=== PATIENT | male | born 2000 | race Two or more races ===

== ENCOUNTER 2021-05-15 19:43 | Inpatient (IN) | payer MEDICAID, OTHER ==
[~2021-05-15] VITALS: Ht 170.2 cm; Wt 121.7 kg
[2021-05-15] MEDS ORDERED: ACETAMINOPHEN 500 MG TAB PO ONE (20:00)
[2021-05-15 20:38] LABS: Basophils # (auto) 0 10 ^3/uL (0-0.2); Basophils % (auto) 0.1 % (0.0-2.0); Eosinophils # (auto) 0 10 ^3/uL (0-0.8); Hematocrit 42.8 % (41.0-53.0); Lymphocytes # (auto) 1.2 10 ^3/uL (0.4-5.4); Lymphocytes % (auto) 15.9 % (10.0-50.0); Mean Corpuscular Hemoglobin 28.7 pg (28.0-32.0); Mean Corpuscular Hgb Conc. 35.1 g/dL (32.0-36.0); Mean Corpuscular Volume 81.7 fL (80.0-100.0); Monocytes # (auto) 0.4 10 ^3/uL (0-1.3); Monocytes % (auto) 5.4 % (0.0-12.0); Neutrophils # (auto) 5.8 10 ^3/uL (1.6-8.6); Neutrophils % (auto) 78.6 % (37.0-80.0); Nucleated Red Blood Cells % 0.1 %; Red Blood Cells 5.24 10^6/uL (4.5-5.90); Red Cell Distribution Width 13.6 % (11.8-14.3); White Blood Cell 7.4 10^3/uL (4.4-10.8)
[2021-05-15 20:44] LABS: Albumin 3.3 g/dL (3.4-5.0); Calcium 8.6 mg/dL (8.5-10.1); Potassium 3.5 mmol/L (3.5-5.1)
[2021-05-15 20:47] LABS: BUN/Creatinine Ratio 8.7
[2021-05-15 20:50] LABS: Bilirubin, Total 0.5 mg/dL (0.2-1.0); Total Protein 7.5 g/dL (6.4-8.2)
[2021-05-15 23:01] LABS: INR 1.14 (0.9-1.15)
[2021-05-16] MEDS ORDERED: IPRATROPIUM BROM 0.5 MG/2.5ML INH SOL NEB ONE (00:45)
[2021-05-16] MEDS ORDERED: ALBUTEROL SULF 2.5 MG/0.5ML(0.5%) NEB SOLN NEB ONE (00:45)
[2021-05-16] MEDS ORDERED: DexAMETHasone SOD PHOS 10MG/1ML VIAL INJ IV ONE (00:45)
[2021-05-16] MEDS ORDERED: NITROGLYCERIN 0.4 MG SL TAB SL PRN (03:45)
[2021-05-16] MEDS ORDERED: ACETAMINOPHEN 500 MG TAB PO PRN (03:45)
[2021-05-16] MEDS ORDERED: HYDROcodone-ACET 5/325MG TAB PO PRN (03:45)
[2021-05-16] MEDS ORDERED: ONDANSETRON HCL 4 MG/2 ML VIAL IV PRN (03:45)
[2021-05-16] MEDS ORDERED: MORPHINE SULFATE INJECTION 2 MG/ML SYRG IV PRN (03:45)
[2021-05-16 04:17] VITALS: BP 121/73
[2021-05-16] MEDS: SODIUM CHLOR 0.9% PF (SALINE LOCK) 10ML VIAL/SYR IV SCH ×3 (06:11→22:22)
[2021-05-16] MEDS: cefTRIAXone 1GM/50ML D5W 50 ML IV SCH (09:50)
[2021-05-16] MEDS: DexAMETHasone SOD PHOS 10MG/1ML VIAL INJ IV SCH (09:50)
[2021-05-16] MEDS: CHOLECALCIFEROL (VITD3) 2,000 UNIT CAP/TAB PO SCH (09:51)
[2021-05-16] MEDS: MULTIPLE VITAMIN TAB PO SCH (09:51)
[2021-05-16] MEDS: ENOXAPARIN SOD 40 MG/0.4 ML SYRINGE SC SCH ×2 (09:51→22:26)
[2021-05-16] MEDS: FAMOTIDINE (10MG/ML) 2ML VL IV SCH ×2 (09:51→22:26)
[2021-05-16] MEDS: ASCORBIC ACID 1,000 MG TAB PO SCH (09:51)
[2021-05-16] MEDS: ZINC SULFATE 220mg CAP or TAB PO SCH (09:51)
[2021-05-16 09:57] VITALS: BP 125/74
[2021-05-16] MEDS: BUDESONIDE (INHALATION) 180 MCG IH IN SCH ×2 (10:00→19:08)
[2021-05-16] MEDS: DOXYCYCLINE 100MG/250ML 250 ML IV SCH ×2 (10:32→22:27)
[2021-05-16] MEDS: ALBUTEROL SULF HFA 90MCG INH 200DOSE IN PRN ×2 (11:07→19:08)
[2021-05-16] MEDS ORDERED: REMDESIVIR PER PHARMACY 0 ML IV SCH (12:30)
[2021-05-16 13:39] VITALS: BP 119/70
[2021-05-16] MEDS: IVERMECTIN 3 MG TAB PO SCH (13:45)
[2021-05-16] MEDS ORDERED: REMDESIVIR 200 MG in NS 210ml LOADING DOSE ADULT IV ONE (14:00)
[2021-05-16] MEDS ORDERED: PROMETHAZINE W/CODEINE 5 ML ORAL SYRUP PO PRN (16:00)
[2021-05-16] MEDS ORDERED: ALBU108A5 IN (16:40)
[2021-05-16 17:25] VITALS: BP 103/68
[2021-05-16 22:25] VITALS: BP 111/74
[2021-05-17 05:23] VITALS: BP 110/59
[2021-05-17] MEDS: SODIUM CHLOR 0.9% PF (SALINE LOCK) 10ML VIAL/SYR IV SCH ×3 (06:00→21:16)
[2021-05-17] MEDS: ALBUTEROL SULF HFA 90MCG INH 200DOSE IN PRN (06:55)
[2021-05-17] MEDS: BUDESONIDE (INHALATION) 180 MCG IH IN SCH ×2 (06:55→22:11)
[2021-05-17 07:03] LABS: Basophils # (auto) 0 10 ^3/uL (0-0.2); Basophils % (auto) 0.3 % (0.0-2.0); Eosinophils # (auto) 0 10 ^3/uL (0-0.8); Eosinophils % (auto) 0.4 % (0.0-7.0); Hematocrit 41.5 % (41.0-53.0); Hemoglobin 14.3 g/dL (13.5-17.5); Lymphocytes # (auto) 1.2 10 ^3/uL (0.4-5.4); Lymphocytes % (auto) 15.3 % (10.0-50.0); Mean Corpuscular Hemoglobin 28.5 pg (28.0-32.0); Mean Corpuscular Hgb Conc. 34.6 g/dL (32.0-36.0); Mean Corpuscular Volume 82.5 fL (80.0-100.0); Monocytes # (auto) 0.6 10 ^3/uL (0-1.3); Monocytes % (auto) 8.1 % (0.0-12.0); Neutrophils # (auto) 5.9 10 ^3/uL (1.6-8.6); Neutrophils % (auto) 75.9 % (37.0-80.0); Nucleated Red Blood Cells % 0.2 %; Red Blood Cells 5.03 10^6/uL (4.5-5.90); Red Cell Distribution Width 13.9 % (11.8-14.3); White Blood Cell 7.7 10^3/uL (4.4-10.8)
[2021-05-17 07:04] LABS: Potassium 4.5 mmol/L (3.5-5.1)
[2021-05-17 07:13] LABS: Albumin 2.7 g/dL (3.4-5.0); BUN/Creatinine Ratio 22.7; Bilirubin, Total 0.5 mg/dL (0.2-1.0); Calcium 8.8 mg/dL (8.5-10.1)
[2021-05-17 08:00] VITALS: BP 110/54
[2021-05-17] MEDS: FAMOTIDINE (10MG/ML) 2ML VL IV SCH ×2 (09:09→21:15)
[2021-05-17] MEDS: cefTRIAXone 1GM/50ML D5W 50 ML IV SCH (09:09)
[2021-05-17] MEDS: DexAMETHasone SOD PHOS 10MG/1ML VIAL INJ IV SCH (09:09)
[2021-05-17] MEDS: ASCORBIC ACID 1,000 MG TAB PO SCH (09:10)
[2021-05-17] MEDS: MULTIPLE VITAMIN TAB PO SCH (09:10)
[2021-05-17] MEDS: ZINC SULFATE 220mg CAP or TAB PO SCH (09:10)
[2021-05-17] MEDS: IVERMECTIN 3 MG TAB PO SCH (09:10)
[2021-05-17] MEDS: CHOLECALCIFEROL (VITD3) 2,000 UNIT CAP/TAB PO SCH (09:10)
[2021-05-17] MEDS: ENOXAPARIN SOD 40 MG/0.4 ML SYRINGE SC SCH ×2 (09:11→21:15)
[2021-05-17] MEDS: DOXYCYCLINE 100MG/250ML 250 ML IV SCH ×2 (10:13→21:16)
[2021-05-17 12:00] VITALS: BP 127/57
[2021-05-17] MEDS: REMDESIVIR 100mg 100 MG in SODIUM CHL 0.9% 230 ML IV SCH (15:00)
[2021-05-17 16:00] VITALS: BP 116/61
[2021-05-17 22:25] VITALS: BP 126/74
[2021-05-18 05:28] VITALS: BP 126/77
[2021-05-18] MEDS: SODIUM CHLOR 0.9% PF (SALINE LOCK) 10ML VIAL/SYR IV SCH ×3 (05:47→22:10)
[2021-05-18] MEDS: BUDESONIDE (INHALATION) 180 MCG IH IN SCH ×2 (06:16→19:41)
[2021-05-18] MEDS: ALBUTEROL SULF HFA 90MCG INH 200DOSE IN PRN ×2 (06:16→19:41)
[2021-05-18 08:00] VITALS: BP 114/57
[2021-05-18] MEDS: FAMOTIDINE (10MG/ML) 2ML VL IV SCH ×2 (08:48→22:10)
[2021-05-18] MEDS: cefTRIAXone 1GM/50ML D5W 50 ML IV SCH (08:48)
[2021-05-18] MEDS: DexAMETHasone SOD PHOS 10MG/1ML VIAL INJ IV SCH (08:48)
[2021-05-18] MEDS: MULTIPLE VITAMIN TAB PO SCH (08:48)
[2021-05-18] MEDS: ASCORBIC ACID 1,000 MG TAB PO SCH (08:48)
[2021-05-18] MEDS: ZINC SULFATE 220mg CAP or TAB PO SCH (08:48)
[2021-05-18] MEDS: IVERMECTIN 3 MG TAB PO SCH (08:48)
[2021-05-18] MEDS: ENOXAPARIN SOD 40 MG/0.4 ML SYRINGE SC SCH ×2 (08:49→22:11)
[2021-05-18] MEDS: CHOLECALCIFEROL (VITD3) 2,000 UNIT CAP/TAB PO SCH (08:49)
[2021-05-18] MEDS: DOXYCYCLINE 100MG/250ML 250 ML IV SCH ×2 (10:00→22:11)
[2021-05-18 13:00] VITALS: BP 108/65
[2021-05-18] MEDS: REMDESIVIR 100mg 100 MG in SODIUM CHL 0.9% 230 ML IV SCH (15:20)
[2021-05-18 17:00] VITALS: BP 112/72
[2021-05-18 21:21] VITALS: BP 112/72
[2021-05-19] MEDS: BUDESONIDE (INHALATION) 180 MCG IH IN SCH ×2 (07:13→19:31)
[2021-05-19 09:00] VITALS: BP 106/53
[2021-05-19] MEDS: CHOLECALCIFEROL (VITD3) 2,000 UNIT CAP/TAB PO SCH (09:11)
[2021-05-19] MEDS: FAMOTIDINE (10MG/ML) 2ML VL IV SCH ×2 (09:11→21:47)
[2021-05-19] MEDS: IVERMECTIN 3 MG TAB PO SCH (09:11)
[2021-05-19] MEDS: DexAMETHasone SOD PHOS 10MG/1ML VIAL INJ IV SCH (09:11)
[2021-05-19] MEDS: MULTIPLE VITAMIN TAB PO SCH (09:11)
[2021-05-19] MEDS: ZINC SULFATE 220mg CAP or TAB PO SCH (09:11)
[2021-05-19] MEDS: ASCORBIC ACID 1,000 MG TAB PO SCH (09:11)
[2021-05-19] MEDS: cefTRIAXone 1GM/50ML D5W 50 ML IV SCH (09:11)
[2021-05-19] MEDS: ENOXAPARIN SOD 40 MG/0.4 ML SYRINGE SC SCH ×2 (09:12→21:47)
[2021-05-19] MEDS: DOXYCYCLINE 100MG/250ML 250 ML IV SCH ×2 (10:41→21:47)
[2021-05-19 13:00] VITALS: BP 128/72
[2021-05-19] MEDS: SODIUM CHLOR 0.9% PF (SALINE LOCK) 10ML VIAL/SYR IV SCH ×2 (14:00→21:47)
[2021-05-19] MEDS: REMDESIVIR 100mg 100 MG in SODIUM CHL 0.9% 230 ML IV SCH (15:58)
[2021-05-19 17:00] VITALS: BP 126/60
[2021-05-19] MEDS: ALBUTEROL SULF HFA 90MCG INH 200DOSE IN PRN (19:31)
[2021-05-19 22:00] VITALS: BP 138/68
[2021-05-20 05:00] VITALS: BP 117/67
[2021-05-20] MEDS: SODIUM CHLOR 0.9% PF (SALINE LOCK) 10ML VIAL/SYR IV SCH ×3 (06:34→21:01)
[2021-05-20] MEDS: cefTRIAXone 1GM/50ML D5W 50 ML IV SCH (09:23)
[2021-05-20] MEDS: DexAMETHasone SOD PHOS 10MG/1ML VIAL INJ IV SCH (09:23)
[2021-05-20] MEDS: ZINC SULFATE 220mg CAP or TAB PO SCH (09:24)
[2021-05-20] MEDS: FAMOTIDINE (10MG/ML) 2ML VL IV SCH ×2 (09:24→21:01)
[2021-05-20] MEDS: ASCORBIC ACID 1,000 MG TAB PO SCH (09:24)
[2021-05-20] MEDS: CHOLECALCIFEROL (VITD3) 2,000 UNIT CAP/TAB PO SCH (09:24)
[2021-05-20] MEDS: MULTIPLE VITAMIN TAB PO SCH (09:24)
[2021-05-20] MEDS: ENOXAPARIN SOD 40 MG/0.4 ML SYRINGE SC SCH (09:24)
[2021-05-20] MEDS: IVERMECTIN 3 MG TAB PO SCH (09:24)
[2021-05-20 09:29] VITALS: BP 128/76
[2021-05-20] MEDS: BUDESONIDE (INHALATION) 180 MCG IH IN SCH ×2 (09:52→22:37)
[2021-05-20] MEDS: ALBUTEROL SULF HFA 90MCG INH 200DOSE IN PRN ×2 (09:52→22:38)
[2021-05-20] MEDS: DOXYCYCLINE 100MG/250ML 250 ML IV SCH ×2 (10:25→21:01)
[2021-05-20] MEDS ORDERED: POTASSIUM CHL 10 Meq TABLET PO ONE (11:45)
[2021-05-20] MEDS ORDERED: FUROSEMIDE 40 MG/4 ML VIAL IV ONE (11:45)
[2021-05-20 12:58] LABS: BUN/Creatinine Ratio 25.8; Calcium 8.4 mg/dL (8.5-10.1)
[2021-05-20 13:00] VITALS: BP 126/59
[2021-05-20] MEDS ORDERED: IOHEXOL 350 MG/ML 100ML IJ ONE (13:51)
[2021-05-20] MEDS: REMDESIVIR 100mg 100 MG in SODIUM CHL 0.9% 230 ML IV SCH (15:39)
[2021-05-20] MEDS ORDERED: ENOXAPARIN SOD 100 MG/1 ML SYRINGE SC ONE (16:00)
[2021-05-20] MEDS ORDERED: TOCILIZUMAB 400 MG in SODIUM CHL 0.9% 80 ML IV SCH (16:30)
[2021-05-20 17:00] VITALS: BP 111/64
[2021-05-20 22:00] VITALS: BP 105/88
[2021-05-21 05:00] VITALS: BP 115/63
[2021-05-21] MEDS: ENOXAPARIN SOD 120 MG/0.8 ML SYRINGE SC SCH ×2 (05:00→17:15)
[2021-05-21] MEDS: SODIUM CHLOR 0.9% PF (SALINE LOCK) 10ML VIAL/SYR IV SCH ×3 (05:01→21:02)
[2021-05-21 05:59] LABS: Hemoglobin 15.3 g/dL (13.5-17.5); Mean Corpuscular Hemoglobin 28.4 pg (28.0-32.0); Mean Corpuscular Volume 83.5 fL (80.0-100.0); Red Blood Cells 5.39 10^6/uL (4.5-5.90); White Blood Cell 10.2 10^3/uL (4.4-10.8)
[2021-05-21 06:06] LABS: Calcium 8.4 mg/dL (8.5-10.1); Magnesium 2.7 mg/dL (1.6-2.6); Potassium 4.3 mmol/L (3.5-5.1)
[2021-05-21 06:08] LABS: Basophils % (manual) 0 (0.0-2.0); Blast Cells 0; Promyelocytes % 0; Reactive Lymphocytes 0
[2021-05-21 06:15] LABS: BUN/Creatinine Ratio 26.6; CRP High Sensitivity 2.98 mg/dL (< 0.3)
[2021-05-21 07:47] LABS: Band Neutrophils % (manual) 6; Eosinophils % (manual) 1 (0-7); Lymphocytes % (manual) 31 (10.0-50.0); Metamyelocytes % 2; Monocytes % (manual) 9 (0-12); Myelocytes % 1
[2021-05-21 09:00] VITALS: BP 109/61
[2021-05-21 09:50] VITALS: BP 109/61
[2021-05-21] MEDS: BUDESONIDE (INHALATION) 180 MCG IH IN SCH ×2 (09:56→21:53)
[2021-05-21] MEDS: ALBUTEROL SULF HFA 90MCG INH 200DOSE IN PRN ×2 (09:56→21:53)
[2021-05-21] MEDS: ASCORBIC ACID 1,000 MG TAB PO SCH (10:13)
[2021-05-21] MEDS: ZINC SULFATE 220mg CAP or TAB PO SCH (10:13)
[2021-05-21] MEDS: MULTIPLE VITAMIN TAB PO SCH (10:13)
[2021-05-21] MEDS: FAMOTIDINE (10MG/ML) 2ML VL IV SCH ×2 (10:14→21:02)
[2021-05-21] MEDS: CHOLECALCIFEROL (VITD3) 2,000 UNIT CAP/TAB PO SCH (10:14)
[2021-05-21] MEDS: FUROSEMIDE 20 MG/2 ML VIAL IV SCH (10:15)
[2021-05-21] MEDS: DexAMETHasone SOD PHOS 10MG/1ML VIAL INJ IV SCH (10:15)
[2021-05-21 13:00] VITALS: BP 101/70
[2021-05-21] MEDS ORDERED: TOCILIZUMAB 400 MG in SODIUM CHL 0.9% 80 ML IV ONE (13:00)
[2021-05-21 17:00] VITALS: BP 119/66
[2021-05-21] MEDS: PIPERACILLIN-TAZOB 3.375GM 100 ML IV SCH ×2 (17:15→23:13)
[2021-05-21 21:52] VITALS: BP 121/90
[2021-05-22 05:00] VITALS: BP 103/75
[2021-05-22] MEDS: ENOXAPARIN SOD 120 MG/0.8 ML SYRINGE SC SCH ×2 (05:12→17:59)
[2021-05-22] MEDS: PIPERACILLIN-TAZOB 3.375GM 100 ML IV SCH ×3 (05:12→17:59)
[2021-05-22] MEDS: SODIUM CHLOR 0.9% PF (SALINE LOCK) 10ML VIAL/SYR IV SCH ×3 (05:12→21:37)
[2021-05-22] MEDS: ALBUTEROL SULF HFA 90MCG INH 200DOSE IN PRN (07:48)
[2021-05-22] MEDS: BUDESONIDE (INHALATION) 180 MCG IH IN SCH ×2 (07:48→22:00)
[2021-05-22] MEDS: DexAMETHasone SOD PHOS 10MG/1ML VIAL INJ IV SCH (08:56)
[2021-05-22] MEDS: FAMOTIDINE (10MG/ML) 2ML VL IV SCH ×2 (08:56→21:36)
[2021-05-22] MEDS: ZINC SULFATE 220mg CAP or TAB PO SCH (08:57)
[2021-05-22] MEDS: CHOLECALCIFEROL (VITD3) 2,000 UNIT CAP/TAB PO SCH (08:57)
[2021-05-22] MEDS: FLORASTOR (S. BOULARDII) 250 MG CAP PO SCH (08:57)
[2021-05-22] MEDS: ASCORBIC ACID 1,000 MG TAB PO SCH (08:57)
[2021-05-22] MEDS: MULTIPLE VITAMIN TAB PO SCH (08:57)
[2021-05-22] MEDS: FUROSEMIDE 20 MG/2 ML VIAL IV SCH (08:57)
[2021-05-22 09:00] VITALS: BP 119/66
[2021-05-22 13:00] VITALS: BP 114/54
[2021-05-22 17:00] VITALS: BP 114/82
[2021-05-22 22:00] VITALS: BP 112/65
[2021-05-23] MEDS: ALBUTEROL SULF HFA 90MCG INH 200DOSE IN PRN ×3 (02:38→21:27)
[2021-05-23 05:00] VITALS: BP 97/56
[2021-05-23] MEDS: ENOXAPARIN SOD 120 MG/0.8 ML SYRINGE SC SCH (05:33)
[2021-05-23] MEDS: SODIUM CHLOR 0.9% PF (SALINE LOCK) 10ML VIAL/SYR IV SCH ×3 (05:51→21:48)
[2021-05-23] MEDS: PIPERACILLIN-TAZOB 3.375GM 100 ML IV SCH ×5 (05:52→23:38)
[2021-05-23 07:37] LABS: Hematocrit 47.3 % (41.0-53.0); Hemoglobin 15.8 g/dL (13.5-17.5); Mean Corpuscular Hgb Conc. 33.3 g/dL (32.0-36.0); Red Blood Cells 5.63 10^6/uL (4.5-5.90); White Blood Cell 9.6 10^3/uL (4.4-10.8)
[2021-05-23 07:49] LABS: Band Neutrophils % (manual) 0; Basophils % (manual) 0 (0.0-2.0); Blast Cells 0; Eosinophils % (manual) 0 (0-7); Metamyelocytes % 0; Myelocytes % 0; Promyelocytes % 0; Reactive Lymphocytes 0
[2021-05-23 07:56] LABS: INR 1.34 (0.9-1.15)
[2021-05-23 08:16] LABS: Potassium 4.8 mmol/L (3.5-5.1)
[2021-05-23 08:21] LABS: Albumin 2.9 g/dL (3.4-5.0); Calcium 8.6 mg/dL (8.5-10.1); Magnesium 2.7 mg/dL (1.6-2.6)
[2021-05-23 08:24] LABS: Bilirubin, Total 0.8 mg/dL (0.2-1.0); Total Protein 6.5 g/dL (6.4-8.2)
[2021-05-23] MEDS: BUDESONIDE (INHALATION) 180 MCG IH IN SCH ×2 (08:24→21:27)
[2021-05-23 08:31] LABS: Lymphocytes % (manual) 38 (10.0-50.0); Monocytes % (manual) 11 (0-12)
[2021-05-23 09:00] VITALS: BP 102/56
[2021-05-23] MEDS: FLORASTOR (S. BOULARDII) 250 MG CAP PO SCH (11:00)
[2021-05-23] MEDS: ZINC SULFATE 220mg CAP or TAB PO SCH (11:01)
[2021-05-23] MEDS: MULTIPLE VITAMIN TAB PO SCH (11:01)
[2021-05-23] MEDS: ASCORBIC ACID 1,000 MG TAB PO SCH (11:01)
[2021-05-23] MEDS: DexAMETHasone SOD PHOS 10MG/1ML VIAL INJ IV SCH (11:01)
[2021-05-23] MEDS: FAMOTIDINE (10MG/ML) 2ML VL IV SCH ×2 (11:01→21:48)
[2021-05-23] MEDS: CHOLECALCIFEROL (VITD3) 2,000 UNIT CAP/TAB PO SCH (11:01)
[2021-05-23] MEDS: FUROSEMIDE 20 MG/2 ML VIAL IV SCH (11:02)
[2021-05-23 13:00] VITALS: BP 100/57
[2021-05-23 17:00] VITALS: BP 112/71
[2021-05-23] MEDS: APIXABAN 5 MG TAB PO SCH (21:48)
[2021-05-23 22:00] VITALS: BP 115/53
[2021-05-24 05:00] VITALS: BP 110/60
[2021-05-24] MEDS: SODIUM CHLOR 0.9% PF (SALINE LOCK) 10ML VIAL/SYR IV SCH ×3 (05:50→21:14)
[2021-05-24] MEDS: PIPERACILLIN-TAZOB 3.375GM 100 ML IV SCH ×5 (05:50→23:39)
[2021-05-24] MEDS: ALBUTEROL SULF HFA 90MCG INH 200DOSE IN PRN ×2 (06:41→22:12)
[2021-05-24] MEDS: BUDESONIDE (INHALATION) 180 MCG IH IN SCH ×2 (06:42→22:11)
[2021-05-24 09:00] VITALS: BP 121/62
[2021-05-24] MEDS: DexAMETHasone SOD PHOS 10MG/1ML VIAL INJ IV SCH (10:12)
[2021-05-24] MEDS: FAMOTIDINE (10MG/ML) 2ML VL IV SCH ×2 (10:13→21:14)
[2021-05-24] MEDS: APIXABAN 5 MG TAB PO SCH ×2 (10:13→21:15)
[2021-05-24] MEDS: ZINC SULFATE 220mg CAP or TAB PO SCH (10:13)
[2021-05-24] MEDS: FLORASTOR (S. BOULARDII) 250 MG CAP PO SCH (10:13)
[2021-05-24] MEDS: MULTIPLE VITAMIN TAB PO SCH (10:14)
[2021-05-24] MEDS: ASCORBIC ACID 1,000 MG TAB PO SCH (10:14)
[2021-05-24] MEDS: CHOLECALCIFEROL (VITD3) 2,000 UNIT CAP/TAB PO SCH (10:14)
[2021-05-24] MEDS: FUROSEMIDE 20 MG/2 ML VIAL IV SCH (10:39)
[2021-05-24 13:00] VITALS: BP 103/57
[2021-05-24 17:00] VITALS: BP 132/78
[2021-05-24 22:00] VITALS: BP 119/54
[2021-05-25 05:00] VITALS: BP 108/67
[2021-05-25] MEDS: SODIUM CHLOR 0.9% PF (SALINE LOCK) 10ML VIAL/SYR IV SCH ×2 (05:26→14:11)
[2021-05-25] MEDS: PIPERACILLIN-TAZOB 3.375GM 100 ML IV SCH ×2 (05:26→12:30)
[2021-05-25] MEDS: BUDESONIDE (INHALATION) 180 MCG IH IN SCH (06:43)
[2021-05-25] MEDS: ALBUTEROL SULF HFA 90MCG INH 200DOSE IN PRN (06:43)
[2021-05-25 09:00] VITALS: BP 107/63
[2021-05-25] MEDS: FAMOTIDINE (10MG/ML) 2ML VL IV SCH (10:24)
[2021-05-25] MEDS: FLORASTOR (S. BOULARDII) 250 MG CAP PO SCH (10:24)
[2021-05-25] MEDS: ASCORBIC ACID 1,000 MG TAB PO SCH (10:24)
[2021-05-25] MEDS: CHOLECALCIFEROL (VITD3) 2,000 UNIT CAP/TAB PO SCH (10:24)
[2021-05-25] MEDS: MULTIPLE VITAMIN TAB PO SCH (10:24)
[2021-05-25] MEDS: APIXABAN 5 MG TAB PO SCH (10:24)
[2021-05-25] MEDS: ZINC SULFATE 220mg CAP or TAB PO SCH (10:24)
[2021-05-25] MEDS: DexAMETHasone SOD PHOS 10MG/1ML VIAL INJ IV SCH (10:25)
[2021-05-25] MEDS: FUROSEMIDE 20 MG/2 ML VIAL IV SCH (10:25)
[2021-05-25 13:00] VITALS: BP 119/66
[2021-05-25] MEDS ORDERED: ASCO10003 PO (15:39)
[2021-05-25] MEDS ORDERED: ALBUAER3 IN (15:39)
[2021-05-25] MEDS ORDERED: DOXY-286 PO (15:39)
[2021-05-25] MEDS ORDERED: BUDE2SUS3 IN (15:39)
[2021-05-25] MEDS ORDERED: ZINC220T6 PO (15:39)
[2021-05-25] MEDS ORDERED: FAMO20TA10 PO (15:39)
[2021-05-25] MEDS ORDERED: CHOL20007 PO (15:39)
[2021-05-25] MEDS ORDERED: APIX5TAB PO (15:39)
[2021-05-25] MEDS ORDERED: DEX4T PO (15:39)
[2021-05-25 15:54] VITALS: BP 119/66
[2021-05-30] MEDS ORDERED: APIXABAN 5 MG TAB PO SCH (22:00)
== END 2021-05-25 17:10 | disposition home or self-care (01) | DRG 720 ==
LOC: ER 19:43 → EDBD 19:43 → TELE 05-16 03:32 → TELE-EAST 05-16 09:14
PROVIDERS: ADMIT Nurse Practitioner Family; ATTEND Internal Medicine
PROC: XW033E5 Introduction of Remdesivir Anti-infective into Peripheral Vein, Percutaneous Approach, New Technology Group 5 (ICD-10-PCS; principal; 2021-05-16)
PROC: XW033H5 Introduction of Tocilizumab into Peripheral Vein, Percutaneous Approach, New Technology Group 5 (ICD-10-PCS; 2021-05-20)
DX: A41.89 Other specified sepsis (principal); I26.99 Other pulmonary embolism without acute cor pulmonale; J12.82 Pneumonia due to coronavirus disease 2019; J96.01 Acute respiratory failure with hypoxia; U07.1 COVID-19; D89.839 Cytokine release syndrome, grade unspecified; J45.901 Unspecified asthma with (acute) exacerbation; E66.01 Morbid (severe) obesity due to excess calories; J98.11 Atelectasis; E55.9 Vitamin D deficiency, unspecified; Z68.41 Body mass index [BMI] 40.0-44.9, adult
CPT/HCPCS: 36415; 36600; 71045; 71275; 80048; 80053; 82306; 82728; 82805; 83605; 83615; 83735; 84132; 85007; 85025; 85027; 85379; 85610; 86141; 87040; 87426; 93005; 93970; 94640; 96374; G0378; J0696; J1100; J2543; J3490

== ENCOUNTER 2021-06-08 11:00 | Emergency (ER) | payer MEDICAID ==
[~2021-06-08] VITALS: Ht 167.6 cm; Wt 113.4 kg
[~2021-06-08 11:00] MED LIST: ALBU108A5 IN; ALBUAER3 IN; APIX5TAB PO; ASCO10003 PO; BUDE2SUS3 IN; CHOL20007 PO; DEX4T PO; DOXY-286 PO; FAMO20TA10 PO; ZINC220T6 PO
[2021-06-08 11:12] VITALS: BP 154/96
[2021-06-08 13:05] LABS: CRP High Sensitivity 1.95 mg/dL (< 0.3)
== END 2021-06-08 13:32 | disposition home or self-care (01) ==
LOC: ER 11:00
DX: R07.89 Other chest pain (principal); J45.909 Unspecified asthma, uncomplicated; Z79.2 Long term (current) use of antibiotics; Z79.899 Other long term (current) drug therapy
CPT/HCPCS: 36415; 71046; 82728; 84484; 85379; 86141; 93005

== ENCOUNTER 2021-09-18 14:35 | Inpatient (IN) | payer MEDICAID ==
[~2021-09-18] VITALS: Ht 167.6 cm; Wt 111.1 kg
[2021-09-18] MEDS: SODIUM CHLORIDE 0.9% 1,000 ML IV SCH
[~2021-09-18 14:35] MED LIST changes: -CHOL20007 PO
[2021-09-18] MEDS ORDERED: SODIUM CHLORIDE 0.9% 1,000 ML IVB ONE (17:00)
[2021-09-18] MEDS ORDERED: ONDANSETRON HCL 4 MG/2 ML VIAL IV ONE (17:00)
[2021-09-18] MEDS ORDERED: PANTOPRAZOLE 40 MG/10 ML VIAL INJ IV ONE (17:00)
[2021-09-18] MEDS ORDERED: MORPHINE SULFATE 4 MG/ML SYR/VIAL IV ONE (17:00)
[2021-09-18 19:22] LABS: Hemoglobin 16.7 g/dL (13.5-17.5); Monocytes # (auto) 0.9 10 ^3/uL (0-1.3); Monocytes % (auto) 6.4 % (0.0-12.0); Neutrophils # (auto) 10.3 10 ^3/uL (1.6-8.6)
[2021-09-18 19:25] LABS: Basophils # (auto) 0 10 ^3/uL (0-0.2); Basophils % (auto) 0.3 % (0.0-2.0); Eosinophils # (auto) 0 10 ^3/uL (0-0.8); Eosinophils % (auto) 0.3 % (0.0-7.0); Hematocrit 50.6 % (41.0-53.0); Lymphocytes # (auto) 2.6 10 ^3/uL (0.4-5.4); Lymphocytes % (auto) 18.8 % (10.0-50.0); Mean Corpuscular Hemoglobin 28.1 pg (28.0-32.0); Mean Corpuscular Hgb Conc. 32.9 g/dL (32.0-36.0); Mean Corpuscular Volume 85.3 fL (80.0-100.0); Neutrophils % (auto) 74.2 % (37.0-80.0); Nucleated Red Blood Cells % 0.2 %; Red Blood Cells 5.93 10^6/uL (4.5-5.90); Red Cell Distribution Width 13.5 % (11.8-14.3)
[2021-09-18 19:39] LABS: Albumin 4.4 g/dL (3.4-5.0); Calcium 9.4 mg/dL (8.5-10.1); Potassium 4.4 mmol/L (3.5-5.1)
[2021-09-18 19:42] LABS: BUN/Creatinine Ratio 14.5; Bilirubin, Total 0.9 mg/dL (0.2-1.0); Total Protein 7.9 g/dL (6.4-8.2)
[2021-09-18] MEDS ORDERED: MORPHINE SULFATE INJECTION 2 MG/ML SYRG IV PRN ×2 (21:15→21:30)
[2021-09-18] MEDS ORDERED: ACETAMINOPHEN 325 MG TAB PO PRN (21:15)
[2021-09-18] MEDS ORDERED: DOCUSATE SOD 100 MG CAP PO PRN (21:15)
[2021-09-18] MEDS ORDERED: HYDROcodone-ACET 5/325MG TAB PO PRN (21:15)
[2021-09-18] MEDS ORDERED: ONDANSETRON HCL 4 MG/2 ML VIAL IV PRN (21:15)
[2021-09-18] MEDS ORDERED: NITROGLYCERIN 0.4 MG SL TAB SL PRN (21:30)
[2021-09-18] MEDS ORDERED: ALBUTEROL SULF HFA 90MCG INH 200DOSE IN SCH (22:00)
[2021-09-18] MEDS: cefTRIAXone 1GM/50ML D5W 50 ML IV SCH (23:00)
[2021-09-18] MEDS: FAMOTIDINE (10MG/ML) 2ML VL IV SCH (23:00)
[2021-09-18] MEDS: ASCORBIC ACID 500 MG TAB PO SCH (23:00)
[2021-09-19] VITALS (7 sets, daily range): BP systolic 124–137; BP diastolic 60–86
[2021-09-19] MEDS: SODIUM CHLORIDE 0.9% 1,000 ML IV SCH (01:02)
[2021-09-19] MEDS ORDERED: ALBUTEROL SULF HFA 90MCG INH 200DOSE IN SCH (06:00)
[2021-09-19 07:06] LABS: Basophils # (auto) 0 10 ^3/uL (0-0.2); Basophils % (auto) 0.3 % (0.0-2.0); Eosinophils # (auto) 0.2 10 ^3/uL (0-0.8); Eosinophils % (auto) 1.9 % (0.0-7.0); Hematocrit 45.8 % (41.0-53.0); Hemoglobin 14.7 g/dL (13.5-17.5); Lymphocytes % (auto) 34.7 % (10.0-50.0); Mean Corpuscular Hemoglobin 27.3 pg (28.0-32.0); Mean Corpuscular Volume 85.4 fL (80.0-100.0); Monocytes # (auto) 0.6 10 ^3/uL (0-1.3); Monocytes % (auto) 6.5 % (0.0-12.0); Neutrophils # (auto) 4.8 10 ^3/uL (1.6-8.6); Neutrophils % (auto) 56.6 % (37.0-80.0); Nucleated Red Blood Cells % 0.1 %; Red Blood Cells 5.36 10^6/uL (4.5-5.90); Red Cell Distribution Width 13.4 % (11.8-14.3); White Blood Cell 8.6 10^3/uL (4.4-10.8)
[2021-09-19 07:14] LABS: Albumin 3.4 g/dL (3.4-5.0); Calcium 8.8 mg/dL (8.5-10.1)
[2021-09-19 07:19] LABS: BUN/Creatinine Ratio 14.5; Bilirubin, Total 0.5 mg/dL (0.2-1.0); Total Protein 6.2 g/dL (6.4-8.2)
[2021-09-19 08:13] LABS: Urine Bacteria NONE SEEN /hpf (None Seen); Urine Blood Negative /uL (Negative); Urine Mucus FEW (None Seen); Urine Specific Gravity 1.026 (1.001-1.035); Urine WBC <1 /hpf (0 - 3)
[2021-09-19] MEDS: cefTRIAXone 1GM/50ML D5W 50 ML IV SCH (11:29)
[2021-09-19] MEDS: ASCORBIC ACID 500 MG TAB PO SCH ×2 (11:33→22:18)
[2021-09-19] MEDS: MULTIPLE VITAMIN TAB PO SCH (11:33)
[2021-09-19] MEDS: ZINC SULFATE 220mg CAP or TAB PO SCH (11:33)
[2021-09-19] MEDS: FAMOTIDINE (10MG/ML) 2ML VL IV SCH ×2 (11:34→22:18)
[2021-09-19 16:42] LABS: INR 1.23 (0.9-1.15); Partial Thromboplastin Time 26.7 sec (23.6-33.0)
[2021-09-20 05:00] VITALS: BP 107/58
[2021-09-20] MEDS: SODIUM CHLORIDE 0.9% 1,000 ML IV SCH ×2 (06:35→09:54)
[2021-09-20 08:00] VITALS: BP 122/79
[2021-09-20 09:00] VITALS: BP 122/61
[2021-09-20] MEDS: ZINC SULFATE 220mg CAP or TAB PO SCH (09:48)
[2021-09-20] MEDS: MULTIPLE VITAMIN TAB PO SCH (09:48)
[2021-09-20] MEDS: ASCORBIC ACID 500 MG TAB PO SCH ×2 (09:48→22:06)
[2021-09-20] MEDS: FAMOTIDINE (10MG/ML) 2ML VL IV SCH ×2 (09:49→22:06)
[2021-09-20] MEDS: cefTRIAXone 1GM/50ML D5W 50 ML IV SCH (09:51)
[2021-09-20 22:00] VITALS: BP 138/85
[2021-09-21 05:00] VITALS: BP 115/44
[2021-09-21 07:22] LABS: Potassium 4.1 mmol/L (3.5-5.1)
[2021-09-21 07:31] LABS: Albumin 3.4 g/dL (3.4-5.0); BUN/Creatinine Ratio 11.3; Calcium 9.3 mg/dL (8.5-10.1)
[2021-09-21 07:33] LABS: Bilirubin, Total 0.4 mg/dL (0.2-1.0); Total Protein 6.3 g/dL (6.4-8.2)
[2021-09-21] MEDS ORDERED: ceFAZolin 1GM/50ML 100 ML IV ONE (07:40)
[2021-09-21] MEDS ORDERED: FAMOTIDINE (10MG/ML) 2ML VL IV ONE (08:15)
[2021-09-21] MEDS ORDERED: ALBUTEROL SULF 2.5 MG/0.5ML(0.5%) NEB SOLN NEB ONE (08:15)
[2021-09-21] MEDS ORDERED: IPRATROPIUM BROM 0.5 MG/2.5ML INH SOL NEB ONE (08:15)
[2021-09-21] MEDS ORDERED: ROCURONIUM 10MG/ML 10ML VIAL IV ONE (08:24)
[2021-09-21] MEDS ORDERED: SUCCINYLCHOLINE CHLORIDE 20 MG/ML 10ML VIAL IV ONE (08:24)
[2021-09-21] MEDS ORDERED: KETAMINE HCL 10 ML ONE (08:33)
[2021-09-21] MEDS ORDERED: HYDROmorphone HCL 2 MG/ML VL ONE (08:33)
[2021-09-21] MEDS ORDERED: fentaNYL CITRATE 100 MCG/2 ML VL ONE ×2 (08:33→10:07)
[2021-09-21] MEDS ORDERED: MIDAZOLAM HCL 2MG/2ML 2ml VIAL (1mg/ml) ONE (08:33)
[2021-09-21] MEDS ORDERED: LIDOCAINE 2% (LOCAL ANESTH.) PF 5ml SDV ONE (08:34)
[2021-09-21] MEDS ORDERED: ONDANSETRON HCL 4 MG/2 ML VIAL ONE (08:34)
[2021-09-21] MEDS ORDERED: PROPOFOL 10 MG/ML 20 ML IV ONE (08:34)
[2021-09-21] MEDS ORDERED: ePHEDrine SULFATE 50 MG/ML AMP ONE (08:34)
[2021-09-21] MEDS ORDERED: GLYCOPYRROLATE 0.2 MG/ML 1ML VIAL ONE (08:34)
[2021-09-21] MEDS ORDERED: HYDROCORTISONE SOD SUCC 100 MG/2ML INJ VIAL ONE (08:34)
[2021-09-21 09:00] VITALS: BP 140/71
[2021-09-21] MEDS: cefTRIAXone 1GM/50ML D5W 50 ML IV SCH (09:00)
[2021-09-21] MEDS ORDERED: LIDOCAINE W/ EPINEPHRINE 1% 20ML VIAL ONE (09:04)
[2021-09-21] MEDS ORDERED: BUPIVACAINE 0.25% INJ 50ML VIAL ONE (09:05)
[2021-09-21] MEDS ORDERED: SUGAMMADEX 200mg/2ml Vial (100MG/ML) IV ONE ×2 (09:29→12:32)
[2021-09-21] MEDS ORDERED: KETOROLAC TROMETH 30 MG/ML 1ML VIAL ONE (09:31)
[2021-09-21] MEDS ORDERED: DexAMETHasone SOD PHOS 10MG/1ML VIAL INJ ONE (09:31)
[2021-09-21] MEDS: ASCORBIC ACID 500 MG TAB PO SCH (09:56)
[2021-09-21] MEDS: FAMOTIDINE (10MG/ML) 2ML VL IV SCH ×2 (09:56→21:03)
[2021-09-21] MEDS: ZINC SULFATE 220mg CAP or TAB PO SCH (09:56)
[2021-09-21] MEDS: MULTIPLE VITAMIN TAB PO SCH (09:56)
[2021-09-21] MEDS ORDERED: ONDANSETRON HCL 4 MG/2 ML VIAL IV PRN (11:00)
[2021-09-21] MEDS ORDERED: HYDROmorphone HCL 2 MG/ML VL IV PRN (11:00)
[2021-09-21 12:30] VITALS: BP 140/65
[2021-09-21] MEDS: HYDROCORTISONE SOD SUCC 100 MG/2ML INJ VIAL IV SCH ×2 (14:03→21:04)
[2021-09-21] MEDS: metroNIDAZOLE 500MG/100ML 100 ML IV SCH ×2 (14:03→21:03)
[2021-09-21 17:00] VITALS: BP 111/70
[2021-09-21] MEDS: SODIUM CHLORIDE 0.9% 1,000 ML IV SCH (21:04)
[2021-09-21 22:00] VITALS: BP 120/63
[2021-09-22] MEDS: metroNIDAZOLE 500MG/100ML 100 ML IV SCH ×3 (05:43→21:25)
[2021-09-22] MEDS: HYDROCORTISONE SOD SUCC 100 MG/2ML INJ VIAL IV SCH ×3 (05:43→21:25)
[2021-09-22 06:16] LABS: Basophils # (auto) 0 10 ^3/uL (0-0.2); Basophils % (auto) 0.1 % (0.0-2.0); Eosinophils # (auto) 0 10 ^3/uL (0-0.8); Hematocrit 42.5 % (41.0-53.0); Hemoglobin 14.2 g/dL (13.5-17.5); Lymphocytes # (auto) 1.8 10 ^3/uL (0.4-5.4); Lymphocytes % (auto) 15.7 % (10.0-50.0); Mean Corpuscular Hgb Conc. 33.4 g/dL (32.0-36.0); Mean Corpuscular Volume 83.8 fL (80.0-100.0); Monocytes # (auto) 0.7 10 ^3/uL (0-1.3); Monocytes % (auto) 6.6 % (0.0-12.0); Neutrophils # (auto) 8.8 10 ^3/uL (1.6-8.6); Neutrophils % (auto) 77.6 % (37.0-80.0); Nucleated Red Blood Cells % 0.1 %; Red Blood Cells 5.07 10^6/uL (4.5-5.90); Red Cell Distribution Width 13.2 % (11.8-14.3); White Blood Cell 11.4 10^3/uL (4.4-10.8)
[2021-09-22 09:00] VITALS: BP 138/74
[2021-09-22] MEDS: SODIUM CHLORIDE 0.9% 1,000 ML IV SCH (10:21)
[2021-09-22] MEDS: cefTRIAXone 1GM/50ML D5W 50 ML IV SCH (10:21)
[2021-09-22] MEDS: FAMOTIDINE (10MG/ML) 2ML VL IV SCH ×2 (10:26→21:25)
[2021-09-22] MEDS: ASCORBIC ACID 500 MG TAB PO SCH ×2 (10:36→21:26)
[2021-09-22] MEDS: ZINC SULFATE 220mg CAP or TAB PO SCH (10:37)
[2021-09-22] MEDS: MULTIPLE VITAMIN TAB PO SCH (10:38)
[2021-09-22 17:00] VITALS: BP 128/85
[2021-09-22 22:00] VITALS: BP 120/70
[2021-09-23] MEDS: SODIUM CHLORIDE 0.9% 1,000 ML IV SCH (01:10)
[2021-09-23 05:00] VITALS: BP 104/63
[2021-09-23] MEDS: HYDROCORTISONE SOD SUCC 100 MG/2ML INJ VIAL IV SCH ×2 (05:29→10:12)
[2021-09-23] MEDS: metroNIDAZOLE 500MG/100ML 100 ML IV SCH (05:41)
[2021-09-23] MEDS: cefTRIAXone 1GM/50ML D5W 50 ML IV SCH (10:08)
[2021-09-23] MEDS: ASCORBIC ACID 500 MG TAB PO SCH (10:11)
[2021-09-23] MEDS: FAMOTIDINE (10MG/ML) 2ML VL IV SCH (10:11)
[2021-09-23] MEDS: MULTIPLE VITAMIN TAB PO SCH (10:11)
[2021-09-23] MEDS: ZINC SULFATE 220mg CAP or TAB PO SCH (10:11)
== END 2021-09-23 16:00 | disposition home or self-care (01) | DRG 263 ==
LOC: ER 14:35 → OVERFLOW 21:30 → WEST WING 09-19 00:46
PROVIDERS: ADMIT Nurse Practitioner Family; ATTEND Family Medicine
PROC: 0FT44ZZ Resection of Gallbladder, Percutaneous Endoscopic Approach (ICD-10-PCS; principal; 2021-09-21 08:48)
DX: K80.00 Calculus of gallbladder with acute cholecystitis without obstruction (principal); D72.829 Elevated white blood cell count, unspecified; E66.01 Morbid (severe) obesity due to excess calories; J45.909 Unspecified asthma, uncomplicated; R79.89 Other specified abnormal findings of blood chemistry; E66.9 Obesity, unspecified; R74.8 Abnormal levels of other serum enzymes; Z20.822 Contact with and (suspected) exposure to COVID-19; E86.0 Dehydration; Z80.3 Family history of malignant neoplasm of breast; Z82.49 Family history of ischemic heart disease and other diseases of the circulatory system; Z83.3 Family history of diabetes mellitus; Z86.16 Personal history of COVID-19; Z87.01 Personal history of pneumonia (recurrent); Z68.41 Body mass index [BMI] 40.0-44.9, adult
CPT/HCPCS: 36415; 76705; 80053; 81001; 82150; 82247; 83690; 85025; 85610; 85730; 86850; 86900; 86901; 87426; 93005; 94640; 96360; C9113; G0378; J0330; J0690; J0696; J1100; J1885; J2001; J2250; J2405; J2704; J3490